=== PATIENT | female | born 1960 | race Caucasian/White ===

== ENCOUNTER 2024-01-20 17:12 | Emergency (ER) | payer MEDICARE ==
[~2024-01-20] VITALS: Ht 165.1 cm; Wt 97.6 kg
[2024-01-20 19:45] LABS: RBC 4.64 M/ul (4.3-5.7)
[2024-01-20 19:47] LABS: EOSINOPHILS 2.4 % (0-6); HEMATOCRIT 40.4 % (35.0-50.0); HEMOGLOBIN 13.3 g/dL (12.0-18.0); LYMPHOCYTES 23.1 % (24-44); MCH 28.6 (27-36); MCHC 32.9 g/dl (30-36); MONOCYTES 7.3 % (0-12); NEUTROPHILS 66.2 % (39-80); PLATELET COUNT 244 K/uL (140-440); RDW 14.3 (10.5-15.0)
[2024-01-20 20:01] LABS: ALBUMIN 3.1 g/dL (3.4-5.0); ALBUMIN/GLOBULIN RATIO 0.79 (1.1-2.4); ANION GAP 13.6 (7-21); BILIRUBIN, TOTAL 0.4 ng/dL (0.2-1.0); BUN/CREATININE RATIO 20.27 (6.0-28.6); CALCIUM 8.2 mg/dL (8.5-10.1); CREATININE, SERUM 0.74 mg/dL (0.55-1.02); POTASSIUM 3.6 mmol/L (3.5-5.1)
[2024-01-20 20:53] VITALS: BP 153/70
== END 2024-01-20 20:55 | disposition home or self-care (01) ==
LOC: ED 17:12
PROVIDERS: Internal Medicine
DX: S09.90XA Unspecified injury of head, initial encounter (principal); W19.XXXA Unspecified fall, initial encounter; G93.9 Disorder of brain, unspecified; I67.1 Cerebral aneurysm, nonruptured
CPT/HCPCS: 36415; 70450; 70486; 70496; 72125; 80053; 85025; 99284-25; Q9967